=== PATIENT | male | born 1990 | race Caucasian/White ===

== ENCOUNTER 2018-01-08 19:02 | Inpatient (IN) | payer MEDICAID ==
[~2018-01-08] VITALS: Ht 185.4 cm; Wt 108.9 kg
[2018-01-08 19:13] VITALS: BP_SYST 150
[2018-01-08] MEDS ORDERED: NACL 0.9% 1,000 ML IV ONE (19:38)
[2018-01-08] MEDS ORDERED: MORPHINE 4 MG/ML INJ. SYRINGE IM ONE (19:45)
[2018-01-08] MEDS ORDERED: ONDANSETRON HCL 4 MG/2 ML VIAL IVP ONE (19:45)
[2018-01-08 19:53] LABS: BILIRUBIN,URINE 2+ (NEGATIVE); BLOOD, URINE TRACE (NEGATIVE); CLARITY/URINE CLEAR (CLEAR); COLOR,URINE YELLOW (YELLOW); GLUCOSE,URINE NEGATIVE (NEGATIVE); KETONES,URINE 3+ (NEGATIVE); LEUKOCYTE ESTERASE ,URINE NEGATIVE (NEGATIVE); NITRITE, URINE NEGATIVE (NEGATIVE); PROTEIN URINE 1+ (NEGATIVE)
[2018-01-08 20:00] LABS: BACTERIA,URINE FEW /HPF (None Seen); RBC,URINE 0-3 /HPF (0-3)
[2018-01-08 20:01] LABS: MUCUS,URINE 1+ /LPF (None Seen)
[2018-01-08 20:04] LABS: BASOPHILS # (AUTO) 0.3 K/uL (0.0-0.2); EOSINOPHILS # (AUTO) 0.1 K/uL (0.0-0.4); EOSINOPHILS % (AUTO) 0.5 % (0.0-4.0); HEMATOCRIT 48.3 % (36-54); HEMOGLOBIN 16.8 g/dL (14.0-18.0); MEAN CORPUSCULAR HEMOGLOBIN 30 pg (27-31); MEAN CORPUSCULAR HGB CONC 35 % (32-36); MEAN CORPUSCULAR VOLUME 86 fL (79.0-98.0); MONOCYTES # (AUTO) 0.9 K/uL (0.0-1.0); MONOCYTES % (AUTO) 6.4 % (1.7-9.3); NEUTROPHILS # (AUTO) 12.1 K/uL (1.8-7.7); NEUTROPHILS % (AUTO) 84.1 % (40.0-70.0); PLATELET COUNT (AUTO) 270 K/uL (130-430); RED BLOOD CELL COUNT(AUTO) 5.62 MIL/uL (4.2-6.2); RED CELL DISTRIBUTION WIDTH 12.1 % (9.0-15.0); WHITE BLOOD COUNT (AUTO) 14.4 K/uL (4.8-10.8)
[2018-01-08 20:09] LABS: CALCIUM 9.5 mg/dL (8.4-11.0); CREATININE 0.9 mg/dL (0.55-1.30); POTASSIUM 3.7 mmol/L (3.5-5.1)
[2018-01-08 20:14] LABS: TOTAL BILIRUBIN 1.1 mg/dL (0.0-1.0)
[2018-01-08] MEDS ORDERED: ESOM20CA33 PO (21:11)
[2018-01-08] MEDS ORDERED: LORazepam 2 MG/ML VIAL IVP PRN (21:15)
[2018-01-08] MEDS ORDERED: BANANA BAG 1 EA, FOLIC ACID 1 MG, THIAMINE HCL 100 MG, MAGNESIUM SULFATE 1 GM, MVI 10 M... IV SCH ×5 (21:15)
[2018-01-08] MEDS ORDERED: MORPHINE 2 MG/ML INJ. SYRINGE IVP PRN (21:15)
[2018-01-08] MEDS ORDERED: D5NS 1,000 ML IV ONE (21:15)
[2018-01-08 21:58] VITALS: BP_SYST 116
[2018-01-08] MEDS: chlordiazePOXIDE HCL 25 MG CAPSULE PO SCH (22:27)
[2018-01-08] MEDS: MORPHINE 4 MG/ML INJ. SYRINGE IVP PRN (22:27)
[2018-01-08] MEDS: ONDANSETRON HCL 4 MG/2 ML VIAL IVP PRN (22:43)
[2018-01-08] MEDS ORDERED: FOLIC ACID 5 MG/ML VIAL IV ONE (23:57)
[2018-01-08] MEDS ORDERED: MVI 10 ML VIAL IV ONE (23:57)
[2018-01-08] MEDS ORDERED: THIAMINE HCL 100 MG/ML VIAL ONE (23:58)
[2018-01-08] MEDS ORDERED: MAGNESIUM SULFATE 1 GM/2 ML VIAL ONE (23:58)
[2018-01-09 00:10] VITALS: BP_SYST 138
[2018-01-09] MEDS: MORPHINE 4 MG/ML INJ. SYRINGE IVP PRN (02:31)
[2018-01-09] MEDS ORDERED: HYDROmorphone 1 MG INJ. 1 MG/ML AMPUL IM PRN (03:45)
[2018-01-09] MEDS: HYDROmorphone 2 MG/ML VIAL IVP PRN ×4 (03:59→20:52)
[2018-01-09 08:00] VITALS: BP_SYST 143
[2018-01-09] MEDS: chlordiazePOXIDE HCL 25 MG CAPSULE PO SCH ×3 (09:06→20:52)
[2018-01-09] MEDS ORDERED: NACL 0.9% 1,000 ML IV ONE ×2 (11:45→12:45)
[2018-01-09 11:51] LABS: BASOPHILS % (AUTO) 0.4 % (0.0-2.0); CALCIUM 8.7 mg/dL (8.4-11.0); CREATININE 0.81 mg/dL (0.55-1.30); EOSINOPHILS # (AUTO) 0.1 K/uL (0.0-0.4); EOSINOPHILS % (AUTO) 1.1 % (0.0-4.0); HEMATOCRIT 44.5 % (36-54); HEMOGLOBIN 15.4 g/dL (14.0-18.0); LYMPHOCYTES # (AUTO) 1.3 K/uL (1.0-5.5); LYMPHOCYTES % (AUTO) 11.5 % (20.5-51.5); MEAN CORPUSCULAR HEMOGLOBIN 30 pg (27-31); MEAN CORPUSCULAR HGB CONC 35 % (32-36); MEAN CORPUSCULAR VOLUME 87 fL (79.0-98.0); MONOCYTES # (AUTO) 0.9 K/uL (0.0-1.0); MONOCYTES % (AUTO) 8.3 % (1.7-9.3); NEUTROPHILS % (AUTO) 78.7 % (40.0-70.0); PLATELET COUNT (AUTO) 242 K/uL (130-430); POTASSIUM 3.7 mmol/L (3.5-5.1); RED BLOOD CELL COUNT(AUTO) 5.13 MIL/uL (4.2-6.2); WHITE BLOOD COUNT (AUTO) 11.3 K/uL (4.8-10.8)
[2018-01-09 12:15] LABS: TOTAL BILIRUBIN 0.8 mg/dL (0.0-1.0)
[2018-01-09 12:16] LABS: ALBUMIN 3.3 g/dL (3.4-4.8)
[2018-01-09] MEDS: D5NS 1,000 ML IV SCH (16:20)
[2018-01-09 16:45] VITALS: BP_SYST 129
[2018-01-09 20:00] VITALS: BP_SYST 133
[2018-01-10 00:14] VITALS: BP_SYST 112
[2018-01-10] MEDS: D5NS 1,000 ML IV SCH ×4 (00:50→22:14)
[2018-01-10] MEDS: HYDROmorphone 2 MG/ML VIAL IVP PRN ×5 (01:03→19:56)
[2018-01-10] MEDS ORDERED: NACL 0.9% 1,000 ML IV ONE (07:45)
[2018-01-10 08:19] VITALS: BP_SYST 139
[2018-01-10] MEDS: chlordiazePOXIDE HCL 25 MG CAPSULE PO SCH ×3 (09:00→20:57)
[2018-01-10] MEDS: BANANA BAG 1 EA, FOLIC ACID 1 MG, THIAMINE HCL 100 MG, MAGNESIUM SULFATE 1 GM, MVI 10 M... IV SCH ×5 (10:24)
[2018-01-10 11:41] LABS: CALCIUM 8.6 mg/dL (8.4-11.0); CREATININE 0.82 mg/dL (0.55-1.30); POTASSIUM 3.5 mmol/L (3.5-5.1)
[2018-01-10 11:42] LABS: BASOPHILS # (AUTO) 0.1 K/uL (0.0-0.2)
[2018-01-10 11:47] LABS: ALBUMIN 3.2 g/dL (3.4-4.8); BASOPHILS % (AUTO) 0.5 % (0.0-2.0); EOSINOPHILS # (AUTO) 0.3 K/uL (0.0-0.4); EOSINOPHILS % (AUTO) 3.2 % (0.0-4.0); HEMATOCRIT 42.1 % (36-54); HEMOGLOBIN 14.7 g/dL (14.0-18.0); LYMPHOCYTES # (AUTO) 1.9 K/uL (1.0-5.5); MEAN CORPUSCULAR HEMOGLOBIN 30 pg (27-31); MEAN CORPUSCULAR HGB CONC 35 % (32-36); MEAN CORPUSCULAR VOLUME 87 fL (79.0-98.0); MONOCYTES # (AUTO) 1.1 K/uL (0.0-1.0); MONOCYTES % (AUTO) 10.6 % (1.7-9.3); NEUTROPHILS # (AUTO) 6.9 K/uL (1.8-7.7); NEUTROPHILS % (AUTO) 67.7 % (40.0-70.0); PLATELET COUNT (AUTO) 215 K/uL (130-430); RED BLOOD CELL COUNT(AUTO) 4.85 MIL/uL (4.2-6.2); RED CELL DISTRIBUTION WIDTH 12.3 % (9.0-15.0); WHITE BLOOD COUNT (AUTO) 10.3 K/uL (4.8-10.8)
[2018-01-10 12:49] VITALS: BP_SYST 136
[2018-01-10 16:46] VITALS: BP_SYST 137
[2018-01-10 19:00] VITALS: BP_SYST 127
[2018-01-10 20:00] VITALS: BP_SYST 127
[2018-01-11] MEDS: HYDROmorphone 2 MG/ML VIAL IVP PRN ×6 (00:05→22:38)
[2018-01-11] MEDS: D5NS 1,000 ML IV SCH ×4 (00:17→20:17)
[2018-01-11 00:28] VITALS: BP_SYST 137
[2018-01-11 08:32] VITALS: BP_SYST 145
[2018-01-11] MEDS: chlordiazePOXIDE HCL 25 MG CAPSULE PO SCH ×3 (08:43→20:34)
[2018-01-11] MEDS ORDERED: DIATR MEGLU/DIATRIZ SOD 30 ML SOLUTION PO ONE (09:36)
[2018-01-11] MEDS ORDERED: IOHEXOL 100 ML IV ONE (11:49)
[2018-01-11] MEDS: BANANA BAG 1 EA, FOLIC ACID 1 MG, THIAMINE HCL 100 MG, MAGNESIUM SULFATE 1 GM, MVI 10 M... IV SCH ×5 (12:04)
[2018-01-11 12:23] VITALS: BP_SYST 127
[2018-01-11 16:30] VITALS: BP_SYST 134
[2018-01-11 19:50] VITALS: BP_SYST 133
[2018-01-12 00:04] VITALS: BP_SYST 132
[2018-01-12] MEDS: D5NS 1,000 ML IV SCH ×4 (01:55→22:24)
[2018-01-12] MEDS: HYDROmorphone 2 MG/ML VIAL IVP PRN ×3 (02:38→12:11)
[2018-01-12 08:04] VITALS: BP_SYST 126
[2018-01-12] MEDS: chlordiazePOXIDE HCL 25 MG CAPSULE PO SCH ×3 (08:40→20:47)
[2018-01-12 12:00] VITALS: BP_SYST 130
[2018-01-12] MEDS: BANANA BAG 1 EA, FOLIC ACID 1 MG, THIAMINE HCL 100 MG, MAGNESIUM SULFATE 1 GM, MVI 10 M... IV SCH ×5 (12:11)
[2018-01-12] MEDS: LEVOFLOXACIN 500 MG/D5W 100 ML IV SCH (14:05)
[2018-01-12 14:07] LABS: BASOPHILS # (AUTO) 0.1 K/uL (0.0-0.2); BASOPHILS % (AUTO) 0.7 % (0.0-2.0); EOSINOPHILS # (AUTO) 0.4 K/uL (0.0-0.4); EOSINOPHILS % (AUTO) 5.2 % (0.0-4.0); HEMATOCRIT 40.9 % (36-54); HEMOGLOBIN 13.7 g/dL (14.0-18.0); LYMPHOCYTES # (AUTO) 1.5 K/uL (1.0-5.5); LYMPHOCYTES % (AUTO) 19.1 % (20.5-51.5); MEAN CORPUSCULAR HEMOGLOBIN 29 pg (27-31); MEAN CORPUSCULAR HGB CONC 33 % (32-36); MEAN CORPUSCULAR VOLUME 88 fL (79.0-98.0); MONOCYTES # (AUTO) 0.7 K/uL (0.0-1.0); MONOCYTES % (AUTO) 9.3 % (1.7-9.3); NEUTROPHILS # (AUTO) 4.9 K/uL (1.8-7.7); NEUTROPHILS % (AUTO) 65.7 % (40.0-70.0); PLATELET COUNT (AUTO) 289 K/uL (130-430); RED BLOOD CELL COUNT(AUTO) 4.67 MIL/uL (4.2-6.2); RED CELL DISTRIBUTION WIDTH 12.1 % (9.0-15.0); WHITE BLOOD COUNT (AUTO) 7.6 K/uL (4.8-10.8)
[2018-01-12 14:10] LABS: CALCIUM 8.9 mg/dL (8.4-11.0); CREATININE 0.7 mg/dL (0.55-1.30); POTASSIUM 3.6 mmol/L (3.5-5.1)
[2018-01-12 14:15] LABS: ALBUMIN 3.1 g/dL (3.4-4.8); TOTAL BILIRUBIN 0.7 mg/dL (0.0-1.0)
[2018-01-12 16:00] VITALS: BP_SYST 125
[2018-01-12] MEDS: MORPHINE 2 MG/ML INJ. SYRINGE IVP PRN ×2 (17:42→22:16)
[2018-01-12 20:12] VITALS: BP_SYST 147
[2018-01-12 23:32] VITALS: BP_SYST 134
[2018-01-13] MEDS: ONDANSETRON HCL 4 MG/2 ML VIAL IVP PRN ×2 (00:15→10:08)
[2018-01-13] MEDS: MORPHINE 2 MG/ML INJ. SYRINGE IVP PRN (03:27)
[2018-01-13] MEDS: D5NS 1,000 ML IV SCH (06:31)
[2018-01-13] MEDS: MORPHINE 4 MG/ML INJ. SYRINGE IVP PRN ×3 (06:57→13:42)
[2018-01-13] MEDS ORDERED: MORPHINE 4 MG/ML INJ. SYRINGE ONE (06:59)
[2018-01-13 08:00] VITALS: BP_SYST 124
[2018-01-13] MEDS: chlordiazePOXIDE HCL 25 MG CAPSULE PO SCH (10:08)
[2018-01-13] MEDS: BANANA BAG 1 EA, FOLIC ACID 1 MG, THIAMINE HCL 100 MG, MAGNESIUM SULFATE 1 GM, MVI 10 M... IV SCH ×5 (11:34)
[2018-01-13 12:00] VITALS: BP_SYST 119
[2018-01-13] MEDS: LEVOFLOXACIN 500 MG/D5W 100 ML IV SCH (13:41)
[2018-01-13 14:59] VITALS: BP_SYST 119
[2018-01-13] MEDS ORDERED: LEVO500T20 PO (15:04)
[2018-01-13 16:00] VITALS: BP_SYST 112
== END 2018-01-13 17:20 | disposition home or self-care (01) | DRG 282 ==
LOC: SED 19:02 → SMU 21:28
PROVIDERS: ADMIT Internal Medicine Hospice and Palliative Medicine; ATTEND Internal Medicine Hospice and Palliative Medicine
DX: K85.20 Alcohol induced acute pancreatitis without necrosis or infection (principal); J18.9 Pneumonia, unspecified organism; Y90.9 Presence of alcohol in blood, level not specified; F10.20 Alcohol dependence, uncomplicated; F17.210 Nicotine dependence, cigarettes, uncomplicated
CPT/HCPCS: 36415; 76700-TC; 80053; 81000-TC; 83690-TC; 85025; 96361; 96374; 96375; 99285; J1170; J1956; J2060; J2270; J2405; J3411; J3475; J3490; J7030; J7042; J7120; Q9964; Q9967